=== PATIENT | male | born 1980 | race Two or more races ===

== ENCOUNTER 2017-06-19 11:30 | Emergency (ER) | payer OTHER ==
[~2017-06-19] VITALS: Ht 162.6 cm; Wt 57.3 kg
[2017-06-19 11:40] VITALS: BP 115/73
--- NOTE | 2017-06-19 11:50 | NUR ---
37Y/M C/O LT SHOULDER PAIN X 5 DAYS. DENIES TRAUMA. HX; HIGH CHOLESTEROL. MED; ZOCOR. PATIENT STATES PAIN OF 5/10 AT THIS TIME; PATIENT POSITIONED FOR COMFORT; ER MD MADE AWARE OF PT STATUS.
[2017-06-19 12:29] VITALS: BP 115/73
--- NOTE | 2017-06-19 12:29 | NUR ---
Patient discharged with v/s stable. Written and verbal after care instructions given and explained. Patient alert, oriented and verbalized understanding of instructions. Ambulatory with steady gait. All questions addressed prior to discharge. ID band removed. Patient advised to follow up with PMD. Rx of Tramadol 50mg given. Patient educated on indication of medication including possible reaction and side effects. Opportunity to ask questions provided and answered.
== END 2017-06-19 12:29 | disposition home or self-care (01) ==
LOC: MED 11:30
DX: M25.512 Pain in left shoulder (principal); E78.5 Hyperlipidemia, unspecified
CPT/HCPCS: 73030; 99284